=== PATIENT | female | born 1985 | race Two or more races ===

== ENCOUNTER 2018-11-25 07:02 | Day surgery (SDC) | payer MEDICAID ==
[2018-11-25] MEDS ORDERED: PROPOFOL 20 ML (10:45)
[2018-11-25] MEDS ORDERED: KETOROLAC 30 MG INJ (10:45)
[2018-11-25] MEDS ORDERED: CEFAZOLIN 1 GM INJ (10:45)
[2018-11-25] MEDS ORDERED: MIDAZOLAM 1 MG/ML 2 ML INJ (10:45)
[2018-11-25] MEDS ORDERED: FENTAnyl 50 MCG/ML VIAL (10:45)
[2018-11-25] MEDS ORDERED: ONDANSETRON 4 MG INJ (10:45)
[2018-11-25] MEDS ORDERED: METOCLOPRAMIDE 10 MG INJ (10:45)
[2018-11-25] MEDS ORDERED: HYDROmorphONE 1 MG/5 ML IV SYRINGE IV ×3 (11:00)
[2018-11-25] MEDS ORDERED: ONDANSETRON 4 MG INJ IV (11:00)
[2018-11-25] MEDS ORDERED: MEPERIDINE 25 MG INJ IV (11:00)
[2018-11-25] MEDS ORDERED: DIPHENHYDRAMINE 50 MG INJ IV (11:00)
[2018-11-25] MEDS ORDERED: OXYCODONE/ACETAMINOPHEN (5/325) TAB PO ×2 (11:00)
== END 2018-11-25 13:30 | disposition home or self-care (01) ==
LOC: SDS 07:02
DX: D24.1 Benign neoplasm of right breast (principal); E78.5 Hyperlipidemia, unspecified; E11.9 Type 2 diabetes mellitus without complications
CPT/HCPCS: 19125; 88307